=== PATIENT | female | born 1965 | race Two or more races ===

== ENCOUNTER 2016-10-15 11:51 | Emergency (ER) | payer OTHER ==
[~2016-10-15] VITALS: Ht 162.6 cm; Wt 89.5 kg
[2016-10-15 11:58] VITALS: PULSE 94; RESP 18; O2SAT 93
--- NOTE | 2016-10-15 13:24 | ED.REPORT ---
HPI-URI / Cough / Cold Date of Service Oct 15, 2016 ED Provider: Geovani Natarajan MD Ms. Javon Espinal is a 50-year-old lady with a past medical history significant for asthma and tobaccoism who presents to the [facility] emergency Department with a 1 month history of sinus pressure, green productive cough, shortness of breath, wheezing, intermittent fevers and chills, sore throat, left ear pain, headache. She reports September 14 began feeling ill for 3 days later visited a physician who gave her a cough suppressant, 2 days later visited her family physician who gave her a cough suppressant with codeine. During this month she has not received antibiotics. She has an albuterol nebulizer that she has used everyday. She was occurring every day smoker but has not smoked since the onset of this illness. She reports fevers, chills, sore throat, left neck and ear pain, headache, extreme sinus pressure, shortness of breath, green productive sputum, wheezing. Denies nausea, vomiting , syncope, change in vision, chest pain, abdominal pain, constipation, diarrhea. Nursing Notes Stated Complaint: COUGH/EAR ACHE/SORE THROAT Chief Complaint: FLU/Cold Symptoms Nursing Notes Reviewed: Yes Allergies: Coded Allergies: latex (Verified Allergy, Intermediate, Shortness of Breath, 10/15/16) erythromycin base (Verified Allergy, Unknown, Nausea,Vomiting, 10/15/16) ONLY ERYTHROMYCIN. AZITHROMYCIN OK. turkey (Verified Allergy, Unknown, 10/15/16) Scheduled Amoxicillin/Clav K 875-125 mg (Amoxicillin/Clav K 875-125 mg) 875 Mg Tab 1 TABLET PO BID General Time Seen by MD: 12:30 Chief Complaint Cough, productive... (Green), Earache left, Facial pain, Fever, Nasal congestion , Runny nose, Sore throat Hx Obtained From: Patient Past Medical History Past Medical History Notes: advair and albuterol Past Medical History Reports: Asthma, COPD Past Surgical History bunion, lap section Reports: Smoking History Current Every Day Smoker Social History Alcohol Use: Denies alcohol use Drug Use: Denies drug use Occupation on base Review of Systems A comprehensive review of systems was conducted with the patient and found to be negative except as above in the History of Present Illness. Physical Exam General: Pleasant lady sitting in chair in no acute distress, well-developed, well-nourished, appropriately interactive HEENT: Normocephalic, atraumatic. External ears without defect. Pupils equal, round, and reactive to light and accommodation. Anicteric sclerae, moist conjunctivae, and no lid lag. Oropharynx free of erythema and cobble stoning with moist mucosa. Neck: Supple with full range of motion. No jugular venous distension. No bruits. Lymphadenopathy present anterior cervical on the left side. No thyromegaly. Cardiovascular: Regular rate and rhythm with no murmurs, rubs, or gallops appreciated Pulmonary: Moderate wheezes and rhonchi diffusely. Normal respiratory effort with no use of accessory muscles. Intermittent cough present. Abdomen: Bowel tones present. Soft, nontender, nondistended. No hepatosplenomegaly or masses appreciated. Extremities: No clubbing, cyanosis, edema, or lymphadenopathy appreciated. Skin: Normal temperature, turgor, and texture; no rash, ulcers, or subcutaneous nodules appreciated. Neurological: Cranial nerves grossly intact. Normal muscle strength, tone, and bulk. Reflexes, coordination, and sensory function within normal limits. No known gait impairment. Psychiatric: Normal mood and affect. Alert and oriented to person, place, and time. Initial Vital Signs Vital Signs (First) Date Time Temp Pulse Resp B/P Pulse Ox O2 Delivery O2 Flow Rate FiO2 10/15/16 11:58 38.0 94 18 93 Room Air Re-Eval/Medical Decision Med Decision/Clinical Course Ms. Javon Espinal is a 50-year-old lady with a past medical history significant for asthma and tobaccoism who presents to the [facility] emergency Department with a 1 month history of sinus pressure, green productive cough, shortness of breath, wheezing, intermittent fevers and chills, sore throat, left ear pain, headache. During this month the patient sinus congestion , fever and sinus pressure or very suggestive of sinusitis. She does not appear sick enough to be admitted to the hospital since her vitals are within normal limits aside from a slight fever however, her physical exam, presentation and history really support the use of Augmentin for 14 days to treat for sinusitis as an outpatient. Patient was given detailed return instructions if symptoms are not improving. Discharge & Departure Impression: Primary Impression: Sinusitis Disposition: Home Discharge Condition All VS Reviewed: Yes Condition: Stable Patient Instructions: Sinusitis (ED) Additional Instructions: During your visit to [facility] Emergency Department we performed a physical exam. Your signs, symptoms and history are very suggestive for sinusitis. To treat sinusitis you should. -Stop smoking. -Use nasal/sinus stove cleaner (for example - Neti pot.). -Decongestant (For example - pseudoephedrine (Sudafed)). Take as directed. -Stay hydrated by drinking plenty of water. -Antibiotics - Augmentin for 14 days. (Take twice per day) Do not hesitate to call emergency services or your primary care physician if you experience any of the following. -High unrelenting fevers. -Uncontrolled vomiting. -Severe hypertension. -Syncope or loss of consciousness. -Chest pain or severe shortness of breath. If your symptoms of cough, shortness of breath, sinus pressure and pain, fever don't improve within 7 days, it is important that you follow up with your primary care physician or return to the emergency department. Follow up with your primary care physician in 1-2 weeks time following your emergency department visit for medication checks and general well-being. Referrals: [facility] ([facility]) Attending Statement The patient was seen and examined together with Dr. Byrne on 10/15/16 and I agree with the history, exam and plan as outlined in the note above. copies to: [facility] DO Oct 15, 2016 13:24 Geovani Natarajan MD Oct 15, 2016 17:26
[2016-10-15] MEDS ORDERED: AGM875T PO (13:27)
== END 2016-10-15 13:48 | disposition home or self-care (01) ==
LOC: SED 11:51
DX: J32.9 Chronic sinusitis, unspecified (principal); R05 Cough; R06.02 Shortness of breath; R06.2 Wheezing; R50.9 Fever, unspecified; J02.9 Acute pharyngitis, unspecified; H92.02 Otalgia, left ear; R51 Headache; J45.909 Unspecified asthma, uncomplicated; J44.9 Chronic obstructive pulmonary disease, unspecified; F17.200 Nicotine dependence, unspecified, uncomplicated; Z91.040 Latex allergy status; Z88.1 Allergy status to other antibiotic agents

== ENCOUNTER 2017-04-03 02:54 | Emergency (ER) | payer OTHER ==
[~2017-04-03] VITALS: Ht 162.6 cm; Wt 90.9 kg
[~2017-04-03 02:54] MED LIST: AGM875T PO
[2017-04-03 03:00] VITALS: BP 145/72; PULSE 66; RESP 18; O2SAT 99
--- NOTE | 2017-04-03 03:42 | ED.REPORT ---
HPI-Dyspnea / Wheezing Date of Service Apr 03, 2017 ED Provider: Prince Dorado MD Pt is a 51 year old female with a history of asthma and COPD who presents to the ED complaining of SOB. She c/o associated cough and wheezing. She also c/o neck pain and LLQ abdominal pain. Pt reports that she has been having trouble with her asthma for a month, and she has used her albuterol neb twice tonight. The pt took Tylenol and Sudafed at 00:00 without relief. She admits to smoking cigarettes, and states there is mold in her house. Pt denies recent steroid use. Nursing Notes Stated Complaint: ASTHMA Chief Complaint: Respiratory Distress Nursing Notes Reviewed: Yes Allergies: Coded Allergies: latex (Verified Allergy, Intermediate, Shortness of Breath, 10/15/16) erythromycin base (Verified Allergy, Unknown, Nausea,Vomiting, 10/15/16) ONLY ERYTHROMYCIN. AZITHROMYCIN OK. turkey (Verified Allergy, Unknown, 10/15/16) Scheduled Amoxicillin/Clav K 875-125 mg (Amoxicillin/Clav K 875-125 mg) 875 Mg Tab 1 TABLET PO BID Benzonatate (Benzonatate) 200 Mg Capsule 200 MG PO TID Prednisone (PredniSONE) 20 Mg Tablet 20 MG PO TID General Time Seen by MD: 03:41 Chief Complaint Shortness of breath Hx Obtained From: Patient Arrived By: Walk-in Sudden in Onset?: No Onset Occurred: More than a week ago... (1 month) Symptom Duration: Since onset Quality: Painful Severity: Current: Moderate Severity: Maximum: Moderate Recent Healthcare: No recent doctor visit, No recent hospitalization Similar Sx Previous: Yes Past Medical History Past Medical History Notes: advair and albuterol Past Medical History Reports: Asthma, COPD Past Surgical History bunion, lap section Reports: Smoking History Current Every Day Smoker Social History Alcohol Use: Denies alcohol use Drug Use: Denies drug use Other Social History: Good social support Occupation on base Ambulatory Status Independent Review of Systems Respiratory: Reports: Non-productive cough, Shortness of breath, Wheezing Musculoskeletal: Reports: Neck pain Complete sys rev & neg: except as marked. GI: Reports: Abdominal pain Physical Exam Initial Vital Signs Vital Signs (First) Date Time Temp Pulse Resp B/P Pulse Ox O2 Delivery O2 Flow Rate FiO2 04/03/17 03:00 36.6 66 18 145/72 99 Room Air Initial VS: Reviewed, Vital signs normal Head / Eyes: Atraumatic, Normocephalic Abdomen / GI: Soft, Non-tender Extremities: Vascular intact, Neuro intact Skin: Warm, Dry, No cyanosis Neurologic: Alert, Oriented, Nonfocal Psychiatric: Mood/affect normal, Behavior normal General/Constitutional: Awake, Alert, Cooperative Neck: Atraumatic, Full range of motion Respiratory / Chest: Atraumatic Few scattered expiratory wheezes Cardiovascular: Heart rate NL, Regular rhythm, Heart sounds NL Re-Eval/Medical Decision Med Decision/Clinical Course 51-year-old female with a mild exacerbation of asthma likely related to bronchitis allergies. She was given additional treatment with DuoNeb and plain albuterol with good relief. She was started on prednisone. She was also given benzonatate. Source of Hx: Old records Re-Evaluation/Progress : Time of Eval: 05:36 Re-Evaluation/Progress Note: Pt rechecked. Informed pt of plan for discharge. Pt understands and agrees with plan for discharge. F/U instructions and RTER warnings given. All questions addressed. Counseled Regarding: Diagnosis, Need for follow-up, When/why to return to ED Discharge & Departure Impression: Primary Impression: Acute asthma exacerbation Asthma severity: mild intermittent Qualified Code: J45.21 - Mild intermittent asthma with (acute) exacerbation Disposition: Home Discharge Condition All VS Reviewed: Yes Condition: Stable Patient Instructions: Asthma (ED) Additional Instructions: Continue your inhaler and nebulizer treatments. Prednisone 20 mg by mouth 3 times a day for 5 days, #15 prescribed. Benzonatate (Tessalon perles) 200 mg 3 times daily as needed for cough, #15 prescribed. Referrals: [facility] ([facility]) [place] Attestation Portions of this note were transcribed by Ariane Hale. I, Dr. Dorado personally performed the history, physical exam and medical decision-making; I reviewed and confirmed the accuracy of the information in the transcribed note. Signed by: Maximino Sexton, 04/03/17 and 05:30. copies to: [facility] Pina MD Apr 03, 2017 03:42 Ariane Carrasquillo Apr 03, 2017 04:02
[2017-04-03] MEDS ORDERED: Albuterol 2.5 mg/3 mL Inhalation Solution NEB ONE (04:00)
[2017-04-03] MEDS ORDERED: Albuterol-Ipratropium 3 mL Inhalation Solution NEB ONE (04:00)
[2017-04-03] MEDS ORDERED: predniSONE 20 mg Tablet PO ONE (04:00)
[2017-04-03] MEDS ORDERED: BENZ200C44 PO (05:38)
[2017-04-03] MEDS ORDERED: PRE20 PO (05:38)
[2017-04-03 05:43] VITALS: PULSE 84; RESP 20; O2SAT 97
[2017-04-03 05:45] VITALS: BP 123/71; PULSE 77; RESP 16; O2SAT 95
== END 2017-04-03 05:46 | disposition home or self-care (01) ==
LOC: SED 02:54
DX: J45.21 Mild intermittent asthma with (acute) exacerbation (principal); J44.9 Chronic obstructive pulmonary disease, unspecified; M54.2 Cervicalgia; R10.32 Left lower quadrant pain; F17.200 Nicotine dependence, unspecified, uncomplicated; Z91.040 Latex allergy status; Z88.1 Allergy status to other antibiotic agents
CPT/HCPCS: 94640; 94664; 99284; J7613; J7620